=== PATIENT | female | born 1980 | race Caucasian/White ===

== ENCOUNTER → 2018-04-30 | Outpatient (CLI) | payer MEDICAID ==
--- NOTE | 2018-04-30 12:18 | CPEEG ---
[f rep st] ELECTROENCEPHALOGRAM DATE OF STUDY: 04/30/2018 INTERPRETATION: Normal EEG during wakefulness and sleep. There were no potentially epileptogenic ab normalities present in the recording. REPORT: This EEG contained 10 Hz alpha activity to the posterior head regions. There was no abnorma l activation at rest, during photic stimulation or hyperventilation. The patient became drowsy and f ell asleep during the study. There was no abnormal activation during drowsiness, sleep, or during ti mes of arousal. /[id number]/MODL
== END ==
LOC: FCPNEURO 07:26
PROVIDERS: ATTEND Psychiatry & Neurology Neurology
DX: R55 Syncope and collapse (principal)

== ENCOUNTER → 2018-05-07 | Outpatient (CLI) | payer MEDICAID ==
[~2018-05-07] MED LIST: GADOBUTROL 10 ML VIAL IVP ONE
== END ==
LOC: FIMAGING 06:40
PROVIDERS: ATTEND Psychiatry & Neurology Neurology
DX: R90.89 Other abnormal findings on diagnostic imaging of central nervous system (principal); R55 Syncope and collapse
CPT/HCPCS: A9585